=== PATIENT | female | born 1965 | race Two or more races ===

== ENCOUNTER 2021-06-21 18:14 | Emergency (ER) | payer MEDICAID ==
[~2021-06-21] VITALS: Ht 147.3 cm; Wt 68.9 kg
[2021-06-21 18:23] VITALS: BP 149/79
--- NOTE | 2021-06-21 19:25 | NUR ---
to bed ambulatory
--- NOTE | 2021-06-21 19:30 | NUR ---
PT. IS A 55 Y/O FEMALE WITH C/O OF HEADACHE. PT. STATES SHE'S HAD THE HEADACHES FOR 2 WEEKS NOW AND THE PAIN RADIATES TO HER NECK. PT. RATES PAIN AT 8/10 ON THE PAIN SCALE. PT. ALSO STATES THAT 2 YEARS AGO SHE WAS DIAGNOSED WITH HTN BUT IS NON COMPLIANT WITH HER MEDICATIONS. DENIES N/V/D; SKIN IS PINK/WARM/DRY; AAOX4 WITH EVEN AND STEADY GAIT; HR EVEN AND REGULAR; PT DENIES ANY FEVER, CP, SOB, OR COUGH AT THIS TIME; VSS; PATIENT POSITIONED FOR COMFORT; HOB ELEVATED; BEDRAILS UP X2; BED DOWN. ER MD MADE AWARE OF PT STATUS. PMH: HTN ALLERGIES: NKA
[2021-06-21] MEDS ORDERED: LISI10TA30 PO (19:51)
[2021-06-21 20:08] VITALS: BP 149/79
--- NOTE | 2021-06-21 20:08 | NUR ---
Patient discharged with v/s stable. Written and verbal after care instructions given and explained. Patient alert, oriented and verbalized understanding of instructions. Ambulatory with steady gait. All questions addressed prior to discharge. ID band removed. Patient advised to follow up with PMD. Rx of LISINOPRIL given. Patient educated on indication of medication including possible reaction and side effects. Opportunity to ask questions provided and answered.
== END 2021-06-21 20:08 | disposition home or self-care (01) ==
LOC: MED 18:14
DX: I10 Essential (primary) hypertension (principal); R51.9 Headache, unspecified; R42 Dizziness and giddiness
CPT/HCPCS: 99283